=== PATIENT | female | born 1980 | race Two or more races ===

== ENCOUNTER 2025-04-09 14:24 | Emergency (ER) | payer MEDICAID ==
[~2025-04-09] VITALS: Ht 162.6 cm; Wt 117.9 kg
[2025-04-09 15:03] VITALS: BP 141/69; TEMP 98.1
[2025-04-09] MEDS ORDERED: IBUPROFEN 600 MG TABLET ONE (15:24)
[2025-04-09] MEDS: IBUPROFEN 600 MG TABLET PO ONE (15:36)
[2025-04-09] MEDS ORDERED: IBUP-1490 PO (15:53)
[2025-04-09 16:01] VITALS: O2SAT 100
== END 2025-04-09 16:47 | disposition home or self-care (01) ==
LOC: ER 14:33
DX: S69.92XA Unspecified injury of left wrist, hand and finger(s), initial encounter (principal); M79.645 Pain in left finger(s); Z88.0 Allergy status to penicillin; W01.0XXA Fall on same level from slipping, tripping and stumbling without subsequent striking against object, initial encounter; Y93.89 Activity, other specified; Y92.89 Other specified places as the place of occurrence of the external cause; Y99.9 Unspecified external cause status
CPT/HCPCS: 73130-TC